=== PATIENT | female | born 1995 | race Hispanic/Latino ===

== ENCOUNTER 2016-05-11 11:42 | Emergency (ER) | payer SELFPAY ==
[2016-05-11 12:10] VITALS: BP 114/50; PULSE 72; RESP 20; TEMP 98; O2SAT 100
[2016-05-11] MEDS ORDERED: Naproxen 500 MG TAB PO ONE (12:19)
--- NOTE | 2016-05-11 12:34 | ED PDOC ---
HPI: General Adult Time Seen by Provider: 05/11/16 11:59 Chief Complaint (Nursing): Chest Pain History Per: Patient History/Exam Limitations: no limitations Current Symptoms Are (Timing): Still Present Additional Complaint(s): 20-year-old female, PMHx includes asthma, presents to the emergency department with complaints back pain. Patient states she developed upper back pain that started one week ago after she was jumping on a trampoline. Pain is worse when she moves, walks or coughs. Secondary complaint is chest pain that started last night after she smoked hookah. Patient denies nausea/vomiting, dizziness, headache, symptoms, change in bowel habits, or any other associated symptoms. No other complaints at this time. PMD None Past Medical History Reviewed: Historical Data, Nursing Documentation, Vital Signs Vital Signs: Last Vital Signs Temp 98.0 F 05/11/16 11:51 Pulse 72 05/11/16 11:51 Resp 20 05/11/16 11:51 BP 114/50 L 05/11/16 11:51 Pulse Ox 100 05/11/16 12:54 - Medical History PMH: Asthma Denies: Migraine (denies) - Family History Family History: States: Unknown Family Hx - Home Medications Home Medications: Ambulatory Orders Medication Instructions Recorded Ibuprofen [Motrin] 600 mg PO TID 7 Days 08/22/15 Cyclobenzaprine [Cyclobenzaprine 10 mg PO TID #15 tab 05/11/16 HCl] Naproxen [Naprosyn] 500 mg PO BID PRN #20 tablet 05/11/16 - Allergies Allergies/Adverse Reactions: Allergies Allergy/AdvReac Type Severity Reaction Status Date / Time No Known Allergies Allergy Verified 05/11/16 11:50 Review of Systems ROS Statement: Except As Marked, All Systems Reviewed And Found Negative Constitutional: Negative for: Fever, Chills Cardiovascular: Positive for: Chest Pain Respiratory: Positive for: Cough Gastrointestinal: Negative for: Nausea, Vomiting Genitourinary Female: Negative for: Vaginal Discharge, Vaginal Bleeding Musculoskeletal: Positive for: Back Pain Skin: Negative for: Rash Neurological: Negative for: Weakness, Numbness, Headache, Dizziness Physical Exam - Reviewed Nursing Documentation Reviewed: Yes Vital Signs Reviewed: Yes - Physical Exam Appears: Positive for: Non-toxic, No Acute Distress Head Exam: Positive for: ATRAUMATIC, NORMOCEPHALIC Skin: Positive for: Warm, Dry. Negative for: Rash Eye Exam: Positive for: Normal appearance Neck: Positive for: Painless ROM Cardiovascular/Chest: Positive for: Chest Non Tender Respiratory: Positive for: Normal Breath Sounds. Negative for: Accessory Muscle Use, Respiratory Distress Gastrointestinal/Abdominal: Positive for: Soft. Negative for: Tenderness Back: Positive for: Other (Local tenderness in left parathoracic spine next to left scapula ) Extremity: Positive for: Normal ROM Neurologic/Psych: Positive for: Alert, Oriented - ECG ECG: Positive for: Viewed By Me ECG Rhythm: Positive for: Normal QRS O2 Sat by Pulse Oximetry: 100 - Radiology X-Ray: Read By Radiologist X-Ray Interpretation: No Acute Disease - Progress Condition: Improving,but remains with symptoms Medical Decision Making Medical Decision Making: Scribe Attestation: Documented by Anaya Jesus acting as a scribe for Kamla Velasco MD. Provider Attestation: All medical record entries made by the Scribe were at my direction and personally dictated by me. I have reviewed the chart and agree that the record accurately reflects my personal performance of the history, physical exam, medical decision making, and the department course for this patient. I have also personally directed, reviewed, and agree with the discharge instructions and disposition. Disposition - Clinical Impression Clinical Impression: Muscle strain of left upper back - Patient ED Disposition Is Patient to be Admitted: No Doctor Will See Patient In The: Office Counseled Patient/Family Regarding: Diagnosis, Need For Followup, Rx Given - Disposition Referrals: Harsha Merino MD [Staff Provider] - Disposition: Routine/Home Disposition Time: 13:23 Condition: STABLE Prescriptions: Cyclobenzaprine [Cyclobenzaprine HCl] 10 mg PO TID #15 tab Naproxen [Naprosyn] 500 mg PO BID PRN #20 tablet PRN Reason: Pain, Moderate (4-7) Instructions: Muscle Strain (ED) Forms: [facility] ED School/Work Excuse - POA Present On Arrival: None
--- NOTE | 2016-05-11 13:06 | RAD ---
HISTORY: backpain, chest pain after smoking Hooka COMPARISON: 08/22/2015 TECHNIQUE: Chest PA and lateral FINDINGS: LUNGS: No active pulmonary disease. PLEURA: No significant pleural effusion identified. No pneumothorax apparent. CARDIOVASCULAR: Normal. OSSEOUS STRUCTURES: No significant abnormalities. VISUALIZED UPPER ABDOMEN: Normal. OTHER FINDINGS: None. IMPRESSION: No active disease.
--- NOTE | 2016-05-13 09:49 | CARD ---
APPROVED REPORT EKG Measurement Heart [id number] <Conclusion> Normal sinus rhythm with sinus arrhythmia Rightward axis Incomplete right bundle branch block Borderline ECG
== END 2016-05-11 13:33 | disposition home or self-care (01) ==
LOC: H.ER 11:42
DX: S29.012A Strain of muscle and tendon of back wall of thorax, initial encounter (principal); F17.200 Nicotine dependence, unspecified, uncomplicated; J45.909 Unspecified asthma, uncomplicated

== ENCOUNTER 2017-01-11 14:32 | Emergency (ER) | payer OTHER ==
[2017-01-11 14:43] VITALS: BP 120/66; PULSE 72; RESP 16; TEMP 98; O2SAT 100
--- NOTE | 2017-01-11 15:11 | ED PDOC ---
HPI: Female Pain Time Seen by Provider: 01/11/17 14:35 Chief Complaint (Nursing): Female Genitourinary Additional Complaint(s): Patient is a 21 y/o F with no PMH, presenting with vaginal bleeding. She reports that her LMP ended 13 days ago. She reports that last night after intercourse she noticed some vaginal spotting. She reports that she also had post-coital dysuria that has now resolved. She presented today because she wants to make sure she is not . She reports some thick white vaginal discharge. Denies abdominal pain. Denies hematuria. Patient denies any fever , nausea, vomiting, constipation, diarrhea. Past Medical History Vital Signs: Last Vital Signs Temp 98.0 F 01/11/17 14:42 Pulse 72 01/11/17 14:42 Resp 16 01/11/17 14:42 BP 120/66 01/11/17 14:42 Pulse Ox 100 01/11/17 14:42 - Medical History PMH: Asthma Denies: Migraine (denies) - Family History Family History: States: Unknown Family Hx - Home Medications Home Medications: Ambulatory Orders Medication Instructions Recorded Ibuprofen [Motrin] 600 mg PO TID 7 Days tab 08/22/15 Cyclobenzaprine [Cyclobenzaprine 10 mg PO TID #15 tab 05/11/16 HCl] Naproxen [Naprosyn] 500 mg PO BID PRN #20 tablet 05/11/16 Miconazole Nitrate [Monistat 3] 1 each VG HS #1 kit 01/11/17 - Allergies Allergies/Adverse Reactions: Allergies Allergy/AdvReac Type Severity Reaction Status Date / Time No Known Allergies Allergy Verified 05/11/16 11:50 Review of Systems ROS Statement: Except As Marked, All Systems Reviewed And Found Negative Constitutional: Negative for: Fever, Chills Cardiovascular: Negative for: Chest Pain, Palpitations, Paroxysmal Noc. Dyspnea Respiratory: Negative for: Cough, Shortness of Breath, SOB with Exertion Gastrointestinal: Negative for: Nausea, Vomiting, Abdominal Pain, Diarrhea, Constipation Genitourinary Female: Positive for: Dysuria (resolved), Vaginal Discharge ( thick white), Vaginal Bleeding (spotting), Pelvic Pain. Negative for: Frequency , Incontinence, Hematuria Musculoskeletal: Negative for: Neck Pain Skin: Negative for: Rash Neurological: Negative for: Weakness, Numbness Physical Exam - Reviewed Nursing Documentation Reviewed: Yes Vital Signs Reviewed: Yes - Physical Exam Appears: Positive for: Well, Non-toxic Head Exam: Positive for: ATRAUMATIC, NORMAL INSPECTION, NORMOCEPHALIC Skin: Positive for: Normal Color, Warm Neck: Positive for: Supple Cardiovascular/Chest: Positive for: Regular Rate, Rhythm Respiratory: Positive for: Normal Breath Sounds Gastrointestinal/Abdominal: Positive for: Soft. Negative for: Tenderness, Mass , Distended Pelvic Exam: Positive for: Other (declining pelvic exam) Back: Positive for: Normal Inspection. Negative for: L CVA Tenderness, R CVA Tenderness Extremity: Positive for: Normal ROM Neurologic/Psych: Positive for: Alert, Oriented - Laboratory Results Result Diagrams: 01/11/17 15:10 01/11/17 15:10 - ECG O2 Sat by Pulse Oximetry: 100 Medical Decision Making Medical Decision Making: Poc negative. Presentation is consistent with irregular menses. Will get hgb to r/o anemia. Patient instructed on importance of following up with ob /rn gyn. Will get u/s to r/o torsion. 3:27PM Hgb:12. Platelets WNL. Coagulation studies WNL. BHCG negative Pelvic u/s shows TECHNIQUE: Transvaginal pelvic ultrasound was performed in [place] on the longitudinal and transverse projections for interpretation. FINDINGS: UTERUS: Measures 7.8 x 4.1 x 3.5 cm. Normal in size and appearance. No fibroid or other mass lesion seen. ENDOMETRIUM: Measures 5.0 mm in diameter. Unremarkable. CERVIX: No cervical abnormality identified. RIGHT OVARY: Measures 2.9 x 3.0 x 1.7 cm. No solid mass. Normal flow. LEFT OVARY: Measures 3.3 x 2.2 x 1.2 cm. No solid mass. Normal flow. FREE FLUID: No significant free fluid noted. OTHER FINDINGS: None. IMPRESSION: Unremarkable pelvic ultrasound. UA negative for leukocytes and nitrates. Patient denies dysuria. Refusing pelvic exam but reports thick white discharge that she says is consistent with prior yeast infection. Will dc with monistat. Disposition - Clinical Impression Clinical Impression: Irregular menses - Disposition [facility] Shikha Brown MD [Staff Provider] - Disposition: Routine/Home Disposition Time: 17:34 Condition: GOOD Additional Instructions: Follow-up with [facility] for irregular menses. Take monistat x 3 nights. Return immediately with any worsening symptoms. Prescriptions: Miconazole Nitrate [Monistat 3] 1 each VG HS #1 kit Forms: [employer] (Pashto)
[2017-01-11 15:19] LABS: HEMATOCRIT 37.1 % (34.0-47.0); LYMPH # 2.2 K/uL (1.0-4.3); LYMPH % 49.5 % (20.0-40.0); MEAN CELL VOLUME 88.2 fl (81.0-99.0); MEAN CORPUSCULAR HEMOGLOBIN 28.6 pg (27.0-31.0); MEAN CORPUSCULAR HGB CONC 32.4 g/dL (33.0-37.0); MEAN PLATELET VOLUME 7.7 fl (7.2-11.7); MONO # 0.5 K/uL (0.0-0.8); MONO % 11.4 % (0.0-10.0); NEUT # 1.7 K/uL (1.8-7.0); NEUT % 37.1 % (50.0-75.0); NRBC % 0.1 % (0.0-0.0); RED CELL DISTRIBUTION WIDTH 12.9 % (11.5-14.5); WHITE BLOOD COUNT 4.5 K/uL (4.8-10.8)
[2017-01-11 15:26] LABS: ALB/GLOB RATIO 1.6 (1.0-2.1); ALKALINE PHOSPHATASE 41 U/L (38-126); ALT/SGPT 37 U/L (9-52); AST/SGOT 21 U/L (14-36); BILIRUBIN,TOTAL 0.5 mg/dl (0.2-1.3); BLOOD UREA NITROGEN 13 mg/dl (7-17); CALCIUM 9.4 mg/dL (8.4-10.2); CARBON DIOXIDE 24 mmol/L (22-30); CHLORIDE 109 mmol/L (98-107); GFR AFRICAN-AMERICAN > 60; GLUCOSE,RANDOM 95 mg/dL (65-105); POTASSIUM 4.4 MMOL/L (3.6-5.0); SODIUM 144 mmol/l (132-148); TOTAL PROTEIN 7.2 G/DL (6.3-8.2)
[2017-01-11 15:31] LABS: PARTIAL THROMBOPLASTIN TIME 32.6 Seconds (25.6-37.1)
--- NOTE | 2017-01-11 17:20 | US ---
HISTORY: irregular vaginal bleeding COMPARISON: None available. TECHNIQUE: Transvaginal pelvic ultrasound was performed in [facility] on the longitudinal and transverse projections for interpretation. FINDINGS: UTERUS: Measures 7.8 x 4.1 x 3.5 cm. Normal in size and appearance. No fibroid or other mass lesion seen. ENDOMETRIUM: Measures 5.0 mm in diameter. Unremarkable. CERVIX: No cervical abnormality identified. RIGHT OVARY: Measures 2.9 x 3.0 x 1.7 cm. No solid mass. Normal flow. LEFT OVARY: Measures 3.3 x 2.2 x 1.2 cm. No solid mass. Normal flow. FREE FLUID: No significant free fluid noted. OTHER FINDINGS: None. IMPRESSION: Unremarkable pelvic ultrasound.
== END 2017-01-11 18:14 | disposition home or self-care (01) ==
LOC: H.ER 14:32
DX: N89.8 Other specified noninflammatory disorders of vagina (principal); J45.909 Unspecified asthma, uncomplicated